=== PATIENT | female | born 1970 | race Caucasian/White ===

== ENCOUNTER 2018-11-21 09:56 | Inpatient (IN) | payer OTHER ==
[~2018-11-21] VITALS: Ht 170.2 cm; Wt 104.3 kg
--- NOTE | 2018-11-21 10:11 | NUR ---
SE RECIBE PACIENTE ALERTA Y ORIENTADA REFIERE TENER FIERTE DOLOR ABDOMINAL EN LADO DERECHO DEL ABDOMEN, HE INDICA TENER NAUSEAS. REFIERE ESTOS SINTOMAS COMENZARON EN LA TARDE DE [place].
--- NOTE | 2018-11-21 11:06 | NUR ---
SE RECIBE PACIENTE ALERTA Y ORIENTADA EVALUADA POR EL DR. DUARTE SE ORIENTA A PACIENTE SOBRE TRATAMIENTO MEDICO SE EXTRAEN MUESTRAS DE SADIE Y SE ADMISNISTRAN MEDICAMENTOS MARIE ORDEN MEDICA BAJO MEDIDAS ASEPTICAS. EN ESPERA DE SONOGRAM ABDOMINAL.
== END 2018-11-24 21:32 | disposition home or self-care (01) | DRG 446 ==
LOC: ER 09:56 → SEC-K 16:36 → MEDJ 16:36
PROVIDERS: ADMIT Student in an Organized Health Care Education/Training Program
PROC: BF37ZZZ Magnetic Resonance Imaging (MRI) of Pancreas (ICD-10-PCS; principal; 2018-11-21)
PROC: BW40ZZZ Ultrasonography of Abdomen (ICD-10-PCS; 2018-11-21)
DX: K80.70 Calculus of gallbladder and bile duct without cholecystitis without obstruction (principal); R79.89 Other specified abnormal findings of blood chemistry; K80.50 Calculus of bile duct without cholangitis or cholecystitis without obstruction; K76.0 Fatty (change of) liver, not elsewhere classified